=== PATIENT | female | born 1960 | race Caucasian/White ===

== ENCOUNTER 2023-12-19 13:38 | Inpatient (IN) | payer OTHER, SELFPAY ==
[2023-12-19 11:04] VITALS: BP 188/107
--- NOTE | 2023-12-19 11:40 | ED.CVA ---
History of Present Illness
General
Chief Complaint: CVA/TIA Symptoms
Time Seen by Provider: 12/19/23 11:37
Onset of Stroke Symptoms
Onset of symptoms known: Yes
Date of onset of symptoms: 12/15/23
History of Present Illness
History of Present Illness:
Patient presents to the emergency department with left-sided hand and arm weakness for 3 days. She also reports intermittent episodes of facial tingling and decreased sensation to the left side of her face and left arm. Denies headache. Denies
neck pain. Denies any known medical history though she states that she does not have health insurance and has not seen a doctor in quite some time. She does not take any medications.
Phy Exam
Physical Exam
Physical Exam:
GENERAL APPEARANCE: NAD, well developed/ well nourished
EYES lids/conjunctiva normal
EARS/NOSE/THROAT Mucous membranes moist, uvula midline without oral pharyngeal erythema, exudate or swelling
HEAD/NECK normocephalic atraumatic, neck is supple.
RESPIRATORY respiratory effort normal, speaks in full sentences, no accessory muscle use. Lungs clear to auscultation without rhonchi, wheezes, rales
CARDIAC Regular rate and rhythm, no edema.
ABDOMINAL Soft, ND/NT. No pulsatile masses on exam, rebound tenderness, Cooper sign or pain over Mcburney's point.
MUSCLES/EXTREMITIES No abnormal range of motion, no swelling.
SKIN Warm, pink and dry. No rashes
NEUROLOGICAL Speech is clear and appropriate. Normal level of consciousness. Cranial nerves II through XII intact except for left side facial sensation is diminished to pinprick. In her extremities she has decreased sensation to pinprick
throughout the left upper extremity. She has no motor drift on the left side but she does have some difficulty coordinating the left hand and left arm. There is no weakness of the left leg there is no ataxia or dysmetria
PSYCH Normal mood and affect. Judgement/competence is appropriate
NIH Stroke Score
Level of Consciousness: 0 - Alert
LOC questions: 0-Answers both correctly
LOC Commands: 0-Performs both correctly
Best Gaze: 0-Normal
Visual Mckinney: 0=Normal, no visual loss
Facial palsy: 0=Normal, symmetrical
Motor - Right Arm: 0=No drift 10 seconds
Motor - Left Arm: 0=No drift 10 seconds
Motor - Right Le-No drift 5 seconds
Motor - Left Le-No drift 5 seconds
Limb Ataxia: 0-Absent
Sensation: 1-Mild loss
Best Language: 0-No aphasia
Dysarthria: 0-Normal
Extinction and Inattention: 0-No abnormality
Total Score:: 1
Alteplase Contraindication
Reasons for NON-Treatment with Thrombolytics: Time
Course
Orders/Labs/Results
Orders:
Orders
12/19/23 11:[address] [CT Head W/o Iv Contrast] Urgent
Comment:
Reason For Exam: numbness
12/19/23 11:57
Complete Blood Count/With Diff Urgent
Comprehensive Metabolic Panel Urgent
Troponin I Urgent
12/19/23 12:20
Electrocardiogram (*1) Stat
Reason for Study: Other
Other Reason for Exam: neuro symptoms
Aspirin Chewable [Low Strength Aspirin] 81 mg PO NOW STA
12/19/23 12:23
NEUROLOGY CONSULT Urgent
Consulting Provider: Matt Reynoso
Was physician already notified: Yes
Reason for consult: stroke
12/19/23 12:36
MR Brain W/o & With Contrast Routine
Comment:
Reason For Exam: subacute CVA, r/o mass
Recent pill cam endoscopy?: No
12/19/23 12:37
MA [place] Wo Routine
Comment:
Reason For Exam: stroke workup
Recent pill cam endoscopy?: No
MA Neck With Contrast Routine
Reason For Exam: stroke workup
Recent pill cam endoscopy?: No
12/19/23 13:26
Admit/Transfer Patient As Directed
Co-Sign Provider:
Level of Care: Inpatient admission
Assign to:: Telemetry
Physician / Group: Zach
Diagnosis: LUE Weakness, Acute Stroke
Reason for Telemetry: CVA/TIA
Date to Stop Telemetry: 12/22/23
Time to Stop Telemetry: 11:00
Reason for Hospitalization: Stroke Work-Up
Expected length of stay greater than two midnights?: Yes
ELOS- Estimated Length of Stay in days: 3
I certify the patient meets the requirements for IP care: Yes
PRN Pain Medication Management As Directed
May give lesser potent ordered pain med per pt: Yes
preference::
Protocol:: Medication orders for pain may be administered in a
manner that supports deferring to patient preference
when the pt is:
- Requesting an ordered lesser potent pain medication.
Least to most potent pain medications are defined
as: acetaminophen < NSAID < tramadol < opioids
(morphine, oxycodone, hydromorphone).
- Requesting a lesser dose of the same medication IF
ORDERED.
- Requesting a less intrusive route of administration
if both routes are prescribed by the provider (PO <
IV).
12/19/23 13:27
Code Status As Directed
Resuscitation Status: Full Code
12/19/23 14:00
Alprazolam [Xanax] 0.25 mg PO ONCE ONE
12/19/23 15:21
Acetaminophen [Tylenol/Feverall] 650 mg RECTAL Q4HPRN PRN
Acetaminophen [Tylenol] 650 mg PO Q4HPRN PRN
Acetaminophen [Tylenol] 650 mg PO Q6HPRN PRN
12/19/23 15:21
Echo 2D MMode Color/Doppler Routine
Reason for Study: stroke/TIA
Case Management Consult ONCE
Case Management Consult: Discharge Planning
Comment: stroke/tia
DIETARY CONSULT Routine
Reason for Consult: stroke/TIA
[facility] Manager Routine
Activity As Directed
Activity Level: Out of Bed- Chair
NIH Stroke Scale As Directed
Directions: Per protocol
Comment: every shift and with any change in condition or mental status
Neurological Checks As Directed
Frequency: q4h
Additional Instructions:: q4h x 24h upon admission to the floor, then qshift & with any change in condition
and mental status
Patient Education As Directed
Type: Stroke education packet
Comment: provide to patient and family
Pneumatic Compression Sleeves As Directed
Type: Knee high
Swallow Screening CVA/TIA ONLY As Directed
Comment: NPO until swallowing screening completed
If patient FAILS swallow screening:: NPO, Speech Therapy consult, Aspiration Precautions
If patient PASSES swallow screening, diet:: Cholesterol Lowering
Vital Signs As Directed
Frequency: Per unit guidelines
Smoking Cessation Counseling [RESP] Routine
Ot Eval And Treat Routine
Pt Eval And Treat Routine
Activity Level: Out of Bed-Early Mobility
Speech Therapy Eval & Treat Routine
DX Deep Vein Thrombosis Video Routine
12/19/23 18:00
Atorvastatin [Lipitor] 40 mg PO QPM
12/19/23 22:00
Melatonin 10 mg PO HS
12/20/23 06:00
Basic Metabolic Panel IN AM
Cardiovascular Evaluation IN AM
Complete Blood Count/No Diff IN AM
Glycohemoglobin (HgbA1c) IN AM
Magnesium IN AM
12/20/23 08:00
Aspirin Chewable [Low Strength Aspirin] 81 mg PO DAILY
Clopidogrel Bisulfate [Plavix] 75 mg PO DAILY
12/22/23 11:00
DC Protocol for Telemetry ONCE
Abnormal Lab Results
12/19/23
11:57
Absolute Monos (auto) 0.7 H 10^3/uL
(0.1-0.6)
Monocytes % 9.4 H %
(1.7-9.3)
12/19/23 11:57
12/19/23 11:57
Vital Signs
Initial and Last Documented VS:
Initial Vital Signs
Temp Pulse Resp BP Pulse Ox
98.5 F 88 18 188/107 98
12/19/23 11:04 12/19/23 11:04 12/19/23 11:04 12/19/23 11:04 12/19/23 11:04
Last Documented Vital Signs
Temp Pulse Resp BP Pulse Ox
98.5 F 70 17 148/112 96
12/19/23 11:04 12/19/23 13:45 12/19/23 13:45 12/19/23 13:00 12/19/23 13:00
*Critical Care Note
Total Time (30-74mins, 75-104mins- exclusive of procedures): Not Applicable
Update Note
Update Note:
consulted Dr. Reynoso with neurology
ED Attending Note
ED Attending Note
ED Attending Note:
Patient with left-sided upper extremity weakness and sensory changes to the left side of the face and arm. CT scan showing subacute infarct in the right parietal region which anatomically matches patient's symptoms. Will admit for stroke workup
-
Portions of this chart may have been created with voice recognition software.� Occasional wrong word or��sound alike� substitutions may have occurred due to the inherent limitations of voice recognition software.
Discharge Plan
Departure
Patient Disposition: Admit
Date of Disposition: 12/19/23
Time of Disposition: 12:55
Admit to: Telemetry
Admit to doctor: Mario
Presentation/result/management discussed w/ accepting MD/DO: Hospitalist
Patient with high blood pressure during this ER visit?: Yes
Discharge Problem:
Stroke
Interventions
Interventions:
*Risk Screen - Suicide Last Done: 12/19/23 11:09
*General Assessment Last Done: 12/19/23 11:09
*Neglect/Abuse Screening Last Done: 12/19/23 11:09
ED- Fall Risk Assessment Last Done: 12/19/23 12:49
*ED COVID-19 Vaccine History Last Done: 12/19/23 11:58
*Nursing Disposition Last Done: 12/19/23 15:09
ED- Cardiac Assessment Last Done: 12/19/23 12:49
ED- Neurological Assessment Last Done: 12/19/23 11:59
ED- Pulmonary Assessment Last Done: 12/19/23 12:49
ED Swallowing Screen Last Done: 12/19/23 12:20
Discharge Date and Time
Discharge Date/Time: 12/19/23 15:09
[2023-12-19 11:55] VITALS: BMI 29.7
[2023-12-19 11:58] VITALS: BP 157/78
[2023-12-19 12:21] LABS: % Basophils 1.1 % (0-2); % Eosinophils 1.2 % (0-6); % Immature Granulocytes 0.3 % (0-0.5); % Lymphocytes 36.6 % (20.5-51.1); % Monocytes 9.4 % (1.7-9.3); % Neutrophils 51.4 % (42.2-75.2); Absolute Basophils 0.1 10^3/uL (0-0.2); Absolute Eosinophils 0.1 10^3/uL (0-0.7); Absolute Lymphocytes 2.7 10^3/uL (1.2-3.4); Absolute Monocytes 0.7 10^3/uL (0.1-0.6); Absolute Neutrophils 3.8 10^3/uL (1.4-6.5); Hematocrit 38.6 % (37.0-47.0); Hemoglobin 13.3 g/dL (12.0-16.0); Mean Corp Hgb Conc. 34.5 g/dL (33.0-37.0); Mean Corpuscular Hgb 30.2 pg (27.0-31.0); Mean Corpuscular Volume 87.5 fL (81.0-99.0); Mean Platelet Volume 10.1 fL (7.4-10.4); Nucleated Red Blood Cells % 0 %; Platelet Count 354 10^3/uL (130-400); Red Blood Cell Count 4.41 10^6/uL (4.20-5.40); Red Cell Dist. Width 13.4 % (11.5-14.5); White Blood Cell Count 7.4 10^3/uL (4.8-10.8)
[2023-12-19] MEDS: LOW STRENGTH ASPIRIN 81 MG PO (12:25)
[2023-12-19 12:30] LABS: ALT (SGPT) 24 U/L (0-35); AST (SGOT) 23 U/L (14-36); Albumin 4.6 g/dl (3.5-5.0); Alkaline Phosphatase 102 U/L (38-126); Blood Urea Nitrogen 16 mg/dl (7-17); Calcium 9.7 mg/dl (8.4-10.2); Carbon Dioxide 27 mmol/L (22-30); Chloride 106 mmol/L (98-107); Estimated Creatinine Clearance 103 ml/min; Glucose 98 mg/dl (70-99); Potassium 4.9 mmol/L (3.5-5.1); Sodium 138 mmol/L (135-145); Total Bilirubin 0.3 mg/dl (0.2-1.3); Total Protein 7.1 g/dl (6.3-8.2); eGFR > 60.00
[2023-12-19 12:41] LABS: Troponin I < 0.012 ng/ml
--- NOTE | 2023-12-19 12:41 | CON.NEURO4 ---
Documented by User: Elba Alexander NP 12/19/23 13:52
Consultation - Neurology 4
-
CONSULTING PHYSICIAN: Matt Reynoso MD
REFERRING PHYSICIAN: ER/Dr. Seth
DICTATED BY: ANA Pedro
DATE/TIME OF REQUEST: 12/19/23
DATE/TIME OF CONSULTATION: 12/19/23
Reason for Consultation: CVA
History of Present Illness:
This is a 63-year-old right-handed female who has presented to the hospital with report of left-sided numbness and LUE weakness. Patient reports that she has not been evaluated by a medical professional in a prolonged period of time and has no
known medical conditions mostly due to not going to a doctor. About one month ago, she reports have a severe right-sided headache lasting several days despite taking OTC pain relievers. She denies any previous history of headaches or migraines and
thought it was very unusual to have a headache. Shortly after her headache resolved, she reports waking up during one night in mid-November 2023 with left-sided numbness most prominent in her LUE and left face. She reports that this sensation never
resolved and has fluctuated in severity since it started. Then three days ago, she notes that her left hand suddenly started feeling slightly weak but was still fully functioning. Yesterday (12/18/23) her entire LUE started feeling weak and her left
hand became weak to the point of dropping objects from her left hand and not being able to do anything dextrous like buttoning her jeans. She also notes that her speech felt slurred, but that has resolved today. She denies any headache, dizziness,
vision loss, diplopia, swallowing difficulty, nausea, chest pain, palpitations, and shortness of breath. She does note several months of seeing 'stars' in bilateral eyes especially with standing up. Blood pressure was 188/[address] head was
obtained on arrival in the ER and is suggestive of hypoattenuation in the posterior right parietal lobe. NIHSS is 1 for mild sensation loss. She is not a candidate for IAT/TNK due to being outside of the time window. She denies any history of TIA,
stroke, or events like this in the past. She was not taking any blood-thinning medications. She also notes significant life stressors related to caring for her son with mental health issues.
Past Medical History: Denies.
Surgical History: Denies.
Family History: Mother- ICA occlusion, AAA.
Social History: 3/4 PPD smoker. Denies alcohol and illicit drug use.
Allergies: No known allergies.
Home Medications: See below.
Review of Symptoms:
Patient denies any fever, headache, chest pain, shortness of breath, GI or symptoms.
�Per the HPI.�All systems are reviewed negative except above.
Physical Exam:
The patient is afebrile, abdomen is nondistended, breathing is unlabored, skin is warm and dry, no edema.
NIH Stroke Scale:
I performed the NIH stroke scale on the patient on 12/19/23 at 1315. The patient scored 1 points on the NIH stroke scale assessment, which were assigned as follows:
Neurologic Examination:
The patient is awake, alert and oriented x 3. She is able to follow commands and answer questions appropriately. There is no aphasia or dysarthria. On cranial nerve assessment, pupils are 3 mm bilateral, round and reactive to light and
accommodation. Visual mckinney are full. Extraocular movements are intact. Facial sensations are intact and bilaterally symmetrical, there is no facial asymmetry. Hearing is intact bilaterally to normal conversation volume. Tongue palate and uvula are
midline. Sternocleidomastoid strengths are full bilaterally. Motor strengths are 5/5 right upper, 5-/5 left upper, and 5/5 bilateral lower extremities on medical research [place] scale. There is no drift or involuntary movement noted. Deep tendon
reflexes are 1+ bilateral upper and lower extremities and Babinski is absent bilaterally. Sensations of temperature and vibration are moderately reduced in the left face, arm, and leg. There was no extinction noted on double simultaneous
stimulation. Coordination is intact by finger to nose bilaterally.
Lab Results: See below.
Neuro Imaging:
1. CT head 12/19/23: Nonspecific focal area of abnormal hypoattenuation within the posterior right parietal lobe which could represent a subacute infarct in the appropriate clinical setting.
Differentials for the patient's presentation include:
1. CT head suggestive of right parietal lobe hypoattenuation concerning for subacute ischemic stroke. Cannot entirely exclude brain mass.
2. Nicotine dependence.
3. Hypertension.
Patient has the following risk factors for their symptoms: smoker, age, hypertension
IV Tenecteplase/IAT candidacy: She is not a candidate for IAT/TNK due to being outside of the time window.
Recommendations:
-Continue aspirin 81mg daily indefinitely.
-MRI w/ and w/o contrast, MRA head/neck pending.
-Goal normotension as symptom onset was >24 hours ago.
-LDL goal <70. Lipid panel pending. Initiate atorvastatin 40mg daily.
-Goal normoglycemia, hbA1c is pending.
-NIHSS and neurological checks per unit guidelines.
-Provide patient with a stroke education packet.
-PT/OT/ST evaluations.
-DVT prophylaxis.
-Smoking cessation counseling.
-Will follow pending results.
Discussed patient care with: Dr. Reynoso, the patient
Vital Signs and Labs
-
Vital Signs and Labs:
Vital Signs
Temp Pulse Resp BP Pulse Ox
98.5 F 75 19 157/78 97
12/19/23 11:04 12/19/23 12:45 12/19/23 12:45 12/19/23 11:58 12/19/23 12:45
Lab Results
12/19/23 11:57
12/19/23 11:57
Sodium 138 mmol/L (135-145) 12/19/23 11:57
Potassium 4.9 mmol/L (3.5-5.1) 12/19/23 11:57
BUN 16 mg/dl (7-17) 12/19/23 11:57
Glucose 98 mg/dl (70-99) 12/19/23 11:57
Calcium 9.7 mg/dl (8.4-10.2) 12/19/23 11:57
Medications
-
Home Medications
�Medication �Instructions �Recorded
acetaminophen 325 mg tablet 650 mg PO Q6HPRN PRN mild pain 12/19/23
(Tylenol)
diphenhydramine 25 2 tab PO HS 12/19/23
mg-acetaminophen 500 mg tablet
(Tylenol PM Extra Strength)
glucosamine [id number]-[id number]-Dvsljrvyj 1 tab PO DAILY 12/19/23
darleen 1,500 mg-400 unit-100 mg
tablet (Osteo Bi-Flex (5-Loxin))
melatonin 10 mg tablet 10 mg PO HS 12/19/23
therapeutic multivitamin 1 tab PO DAILY 12/19/23
NIH Stroke Score
Subsequent NIH Scale
Date of Subsequent NIH Scale: 12/19/23
Time of Subsequent NIH Scale: 13:15
NIH Stroke Score
Level of Consciousness: 0 - Alert
LOC Questions: 0-Answers both correctly
LOC Commands: 0-Performs both correctly
Best Horizontal Gaze: 0-Normal
Visual Mckinney: 0=Normal, no visual loss
Facial Palsy: 0=Normal, symmetrical
Motor - Right Arm: 0=No drift 10 seconds
Motor - Left Arm: 0=No drift 10 seconds
Motor - Right Le-No drift 5 seconds
Motor - Left Le-No drift 5 seconds
Limb Ataxia: 0-Absent
Sensation: 1-Mild loss
Best Language: 0-No aphasia
Dysarthria: 0-Normal
Extinction and Inattention: 0-No abnormality
Total Score:: 1
Modified Niru (mRS) Score
Modified Edwards Scale (mRS): Slight disability. Able to look after own affairs.
Score: 2

Documented by User: Matt Reynoso MD 12/19/23 21:22
Consultation - Neurology 4
-
CONSULTING PHYSICIAN: Matt Reynoso MD
REFERRING PHYSICIAN: ER/Dr. Seth
DICTATED BY: ANA Pedro
DATE/TIME OF REQUEST: 12/19/23
DATE/TIME OF CONSULTATION: 12/19/23
Reason for Consultation: CVA
History of Present Illness:
This is a 63-year-old right-handed female who has presented to the hospital complaining of left-sided numbness and weakness. Patient reports that she has not been evaluated by a medical professional in a prolonged period of time and has no known
medical conditions mostly due to not going to a doctor. Since November about 3-4 weeks ago, she reports have a severe right-sided headache lasting several days despite taking OTC pain relievers. She denies any previous history of headaches or migraines
and thought it was very unusual to have a headache. Shortly after her headache resolved, she reports waking up during one night in mid-November 2023 with left-sided numbness most prominent in her LUE and left face. She reports that this sensation never
resolved and has fluctuated in severity since it started. Then three days ago, she notes that her left hand suddenly started feeling slightly weak but was still fully functioning. Yesterday (12/18/23) her entire LUE started feeling weak and her left
hand became weak to the point of dropping objects from her left hand and not being able to do anything dextrous like buttoning her jeans. She also notes that her speech felt slurred, but that has resolved today. She denies any headache, dizziness,
vision loss, diplopia, swallowing difficulty, nausea, chest pain, palpitations, and shortness of breath. She does note several months of seeing 'stars' in bilateral eyes especially with standing up. Blood pressure was 188/[address] head was
obtained on arrival in the ER and is suggestive of hypoattenuation in the posterior right parietal lobe. NIHSS is 1 for mild sensation loss.
She is not a candidate for IAT/TNK due to symptom onset in November. She denies any history of TIA, stroke, or events like this in the past. She was not taking any blood-thinning medications. She also notes significant life stressors related to caring
for her son with mental health issues.
Past Medical History: Denies.
Surgical History: Denies.
Family History: Mother- ICA occlusion, AAA.
Social History: 07/15 PPD smoker. Denies alcohol and illicit drug use. Lives at home
Allergies: No known allergies.
Home Medications: See below.
Review of Symptoms:
Patient denies any fever, headache, chest pain, shortness of breath, GI or symptoms.
�Per the HPI.�All systems are reviewed negative except above.
Physical Exam:
The patient is afebrile, abdomen is nondistended, breathing is unlabored, skin is warm and dry, no edema.
NIH Stroke Scale:
I performed the NIH stroke scale on the patient on 12/19/23 at 1315. The patient scored 1 points on the NIH stroke scale assessment, which were assigned as follows:
Neurologic Examination:
The patient is awake, alert and oriented x 3. She is able to follow commands and answer questions appropriately. Speech is fluent. There is no aphasia or dysarthria. On cranial nerve assessment, pupils are 3 mm bilateral, round and reactive to
light and accommodation. Visual mckinney are full. Extraocular movements are intact. Facial sensations are intact and bilaterally symmetrical, there is no facial asymmetry. Hearing is intact bilaterally to normal conversation volume. Tongue palate and
uvula are midline. Sternocleidomastoid strengths are full bilaterally. Motor strengths are 5/5 right upper, 5-/5 left upper, and 5/5 bilateral lower extremities on medical research [place] scale. There is no drift or involuntary movement noted. Deep
tendon reflexes are 1+ bilateral upper and lower extremities and Babinski is absent bilaterally. Sensations of temperature and vibration are moderately reduced in the left face, arm, and leg. There was no extinction noted on double simultaneous
stimulation. Coordination is intact by finger to nose bilaterally. Rombergs and Gait WNL
Lab Results: See below.
Neuro Imaging:
1. CT head 12/19/23: Nonspecific focal area of abnormal hypoattenuation within the posterior right parietal lobe which could represent a subacute infarct in the appropriate clinical setting.
Differentials for the patient's presentation include:
1. CT head suggestive of right parietal lobe hypoattenuation concerning for subacute ischemic stroke. Cannot entirely exclude brain mass.
2. Nicotine dependence.
3. Hypertension.
Patient has the following risk factors for their symptoms: smoker, age, hypertension
IV Tenecteplase/IAT candidacy: She is not a candidate for IAT/TNK due to being outside of the time window.
Recommendations:
-Continue aspirin 81mg daily indefinitely.
-MRI w/ and w/o contrast, MRA head/neck pending.
-Goal normotension as symptom onset was >24 hours ago.
-LDL goal <70. Lipid panel pending. Initiate atorvastatin 40mg daily.
-Goal normoglycemia, hbA1c is pending.
-NIHSS and neurological checks per unit guidelines.
-Provide patient with a stroke education packet.
-PT/OT/ST evaluations.
-DVT prophylaxis.
-Smoking cessation counseling.
-Will follow pending results.
Discussed patient care with: Dr. Reynoso, the patient
Neurology Attending:
63 yr. old lady with h/o uncontrolled HTN who was admitted with new onset numbness and weakness on the Left side associated with mild motor/sensory deficits with CT finding of right parietal lesion: ischemic vs space occupying lesion
PLAN: Strict BP control
MRI brain with/without Arian
Ecasa 81
Lipid profile
PT/OT
NIH Stroke Score
NIH Stroke Score
Total Score:: 1
Modified Edwards (mRS) Score
Score: 2
[2023-12-19 13:00] VITALS: BP 148/112
--- NOTE | 2023-12-19 13:06 | W.PN.UPDATE ---
Update Note
Progress Note Update
I have independently examined the patient. I agree with assesment and plan outlined in the same date written H&P. In addition:
63yo F with DJD came with LUE weakness x3 days and fascial tingling. CT head showed possible R parietal subacurte stroke.
A/P:
#CVA
ASA, Plavix, Statin
Neurochecks
Telemetry, Echo
check TSH, Lipids, HgbA1c
Neurology cosnult
MRA neck/head and MRI brain
#DJD
cont tylenol
#nicotine dependency
counseled on smoking cessation
Nicoderm PRN
#Elevated BP
without diagnosis of HTN
follow trend
DVT ppx SCDs
Full code
We have spent at least 58min admitting the patient
--- NOTE | 2023-12-19 13:29 | HPS.HSE ---
Family Physician
-
Family Physician: Genesis Mckinney MD
Chief Complaint
-
Left upper extremity weakness
History of Present Illness
Patient is a 63 yo F without significant PMH c/o LUE weakness x 3 day. Pt states she noticed L hand weakness 3 days ago worsening yesterday afternoon with numbness/decreased sensation of LUE and loss of dexterity in L hand accompanied by slurred
speech. She admits to smoking 3/4 PPD x decades. She states she has not seen a doctor in years due to lack of health insurance and notes increasing daily stressors including son with mental health disorder and increasing monthly rent. She denies PMH
CVA, migraines, MS, cardiac issues. She denies other focal neurologic symptoms.
Medical History
Past Medical History
Past Medical History: Reports None
Past Surgical History: Reports None
Social History
Tobacco: Smoker (3/4 pack per day)
Family History
Family History: Not pertinent
Allergies / Home Medications
Allergies reflects when Allergies were last updated in [employer].
Home Medications with original date entered in [employer]
Allergy/Medication List:
Allergies
Allergy/AdvReac Type Severity Reaction Status Date / Time
No Known Allergies Allergy Unverified 12/19/23 11:04
Home Medications
acetaminophen 325 mg tablet (Tylenol) 650 mg PO Q6HPRN PRN mild pain 12/19/23
diphenhydramine 25 mg-acetaminophen 500 mg tablet (Tylenol PM Extra Strength) 2 tab PO HS 12/19/23
glucosamine [id number] darleen 1,500 mg-400 unit-100 mg tablet (Osteo Bi-Flex (5-Loxin)) 1 tab PO DAILY 12/19/23
melatonin 10 mg tablet 10 mg PO HS 12/19/23
therapeutic multivitamin 1 tab PO DAILY 12/19/23
Review of Systems
-
A 12 point ROS was completed and negative except as noted: Yes
Constitutional: Denies Fever or Chills
Respiratory: Denies Cough or Trouble Breathing
Cardiac: Denies Chest Pain or Palpitations
Neurological: Reports See HPI
Physical Exam
Vital Signs
Vital Signs
Temp Pulse Resp BP Pulse Ox
98.5 F 75 19 157/78 97
12/19/23 11:04 12/19/23 12:45 12/19/23 12:45 12/19/23 11:58 12/19/23 12:45
Physical Exam
General: Comfortable and Conversant
HEENT: Anicteric, Moist mucous membranes and PERRLA
Respiratory: Clear and Non Labored Respirations
Cardiac: S1/S2 and Regular Rhythm
GI: Soft, Non Tender and Non Distended
Rectal: Deferred by Provider
Musculoskeletal: No Clubbing, No Cyanosis and No Edema
Skin: Warm and Dry
Neuro: Awake, Alert, Oriented and Other (Significant decreased left hand public relations consultant strength; Decreased sensation left forearm)
Psych: Calm
Laboratory Results
-
12/19/23 11:57
12/19/23 11:57
Laboratory Results
Total Bilirubin 0.3 mg/dl (0.2-1.3) 12/19/23 11:57
AST 23 U/L (14-36) 12/19/23 11:57
ALT 24 U/L (0-35) 12/19/23 11:57
Alkaline Phosphatase 102 U/L (38-126) 12/19/23 11:57
Troponin I < 0.012 ng/ml 12/19/23 11:57
Data Reviewed
-
CT Scan: Report Reviewed by me
Lab Data: Labs Reviewed by me
Impression/Plan
-
Left Upper Extremity Weakness
-Head CT consistent with subacute right posterior parietal lobe infarct
-Consult Neurology
-Check Brain MRI with Head/Neck MRA
-Check Echo
-Check FLP and Hgb1c
-Consult PT/OT
-Continue Aspirin and Plavix
Hypertension
-Continue to monitor for now
-Consider starting antihypertensive if BP remains elevated
Tobacco Use Disorder
-Encourage smoking cessation
DVT proh: SCDs
Code Status: Full Code
[2023-12-19 15:51] VITALS: BP 159/124; BMI 28.8
[2023-12-19] MEDS: LIPITOR 40 MG PO (17:29)
[2023-12-19 19:24] VITALS: BP 159/78
[2023-12-19] MEDS: TYLENOL 650 MG PO (19:39)
[2023-12-19] MEDS: MELATONIN 10 MG PO (20:59)
--- NOTE | 2023-12-19 22:25 | PTCARENOTE ---
Patient received in bed at change of shift. AAOX3. NIH scale performed with result of 1 for left upper arm decreased sensation. Oriented to unit. Call walker within reach. No signs of distress noted.
[2023-12-19 23:04] VITALS: BP 147/85
[2023-12-20] VITALS (8 sets, daily range): BP systolic 116–161; BP diastolic 68–98; PULSE 67–72; O2SAT 97
[2023-12-20 07:19] LABS: Hematocrit 39.6 % (37.0-47.0); Hemoglobin 13.5 g/dL (12.0-16.0); Mean Corp Hgb Conc. 34.1 g/dL (33.0-37.0); Mean Corpuscular Hgb 29.8 pg (27.0-31.0); Mean Corpuscular Volume 87.4 fL (81.0-99.0); Mean Platelet Volume 10.2 fL (7.4-10.4); Platelet Count 325 10^3/uL (130-400); Red Blood Cell Count 4.53 10^6/uL (4.20-5.40); Red Cell Dist. Width 13.2 % (11.5-14.5); White Blood Cell Count 6.6 10^3/uL (4.8-10.8)
[2023-12-20] MEDS: PLAVIX 75 MG PO (07:35)
[2023-12-20] MEDS: LOW STRENGTH ASPIRIN 81 MG PO (07:35)
[2023-12-20] MEDS: XANAX 0.25 MG PO (07:36)
[2023-12-20 08:03] LABS: Blood Urea Nitrogen 14 mg/dl (7-17); Calcium 9.6 mg/dl (8.4-10.2); Carbon Dioxide 28 mmol/L (22-30); Chloride 104 mmol/L (98-107); Estimated Creatinine Clearance 102 ml/min; Glucose 121 mg/dl (70-99); HDL Cholesterol 41 mg/dl; LDL Cholesterol, Calculated 160 mg/dl; Magnesium 2.1 mg/dl (1.6-2.3); Potassium 4.9 mmol/L (3.5-5.1); Sodium 138 mmol/L (135-145); Total Cholesterol 249 mg/dl (50-199); Triglyceride 242 mg/dl (10-149); Very Low Density Lipoprotein 48 mg/dl (0-30); eGFR > 60.00
[2023-12-20 08:23] LABS: TSH Reflex To Free T4 0.74 uIU/ml (0.47-4.68)
[2023-12-20 08:30] LABS: Glycohemoglobin (HgbA1c) 6.3 % (4.0-5.6)
--- NOTE | 2023-12-20 09:15 | PTOTSP ---
Speech Language Pathology
Pt seen for cognitive-linguistic evaluation via the Forrest Cognitive Assessment (MOCA), version 8.2. Pt with a score of 27/30 where normal range is 26-30. Short-term memory affected with pt only able to recall 2/5 words independently, 3/5 with
min cueing, 5/5 with multiple choice cuing. Mild cognitive deficits noted. Pt reported she feels 'slow' and reported noting memory difficulties for some time, possibly since she noted arm tingling 1 month ago.
Given memory deficits, recommend outpatient rehab pending PT/OT evaluations/needs. [employer] to continue to follow.
[2023-12-20 10:32] LABS: ALT (SGPT) 25 U/L (0-35); AST (SGOT) 23 U/L (14-36); Albumin 4.4 g/dl (3.5-5.0); Alkaline Phosphatase 86 U/L (38-126); Direct Bilirubin 0.1 mg/dl (0.0-0.4); Total Bilirubin 0.4 mg/dl (0.2-1.3); Total Protein 6.6 g/dl (6.3-8.2)
--- NOTE | 2023-12-20 11:05 | W.PN.HOSP.TC ---
Today's Communication/Plan
-
CTA neck/head
Reattempt MRI with more sedation (ordered Ativan 1mg)
Assessment / Plan
Assessment / Plan
63yo F with DJD came with LUE weakness x3 days and fascial tingling. CT head showed possible R parietal subacurte stroke, however as per neurology -concern for additional reasons for current deficit, so MRI head with and without contrast scheduled
A/P:
#CVA
#HLD
ASA, Plavix, Statin
Neurochecks
Telemetry without clinically significant arrhythmia
Echo with no PFO, preserved EF
TSH WNL
LDL 160
Neurology cosnult
MRI brain with and without contrast - could not initially tolerate, will reattempt with more sedation with Ativan
CTA head/Neck
#DJD
cont tylenol
#nicotine dependency
counseled on smoking cessation
Nicoderm PRN
#Elevated BP
without diagnosis of HTN
follow trend
#PreDM
HgbA1c 6.2 - low carb diet nd PCP follow up
DVT ppx SCDs
Full code
I have spent at least 36min reviewing chart, test results, communication with consultants and direct patient care
Anticipated Discharge: Within 24 hours
Subjective/Interval History
-
Date of Service: December 20, 2023
Objective Data
-
Labs:
Laboratory Results
12/20/23
06:54
WBC 6.6
Hgb 13.5
Hct 39.6
Plt Count 325
Sodium 138
Potassium 4.9
Chloride 104
Carbon Dioxide 28
BUN 14
Creatinine 0.6
Glucose 121 H
Calcium 9.6
Total Bilirubin 0.4
AST 23
ALT 25
Alkaline Phosphatase 86
Vital Signs:
Vital Signs
Temp Pulse Resp BP Pulse Ox
97.8 F 72 18 137/82 97
12/20/23 07:00 12/20/23 07:00 12/20/23 07:00 12/20/23 07:00 12/20/23 07:00
I&O
12/19/23 12/20/23 12/21/23
06:59 06:59 06:59
Intake Total 350 / 350
Balance 350 / 350
Review of Systems
-
History Source: Patient
All other systems: Reviewed and negative
Neuro: Reports Numbness (over dorsal of L hand) and Other
Physical Exam
-
General: No Apparent Distress
HEENT: Normocephalic, Atraumatic and Moist Mucous Membranes
Respiratory: Clear to Auscultation
Cardiac: Regular Rhythm
GI: Soft, Nontender and Nondistended
Genito-urinary: No Costovertebral Tender
Musculoskeletal: No Clubbing, No Cyanosis and No Edema
Neuro: Awake, Alert, Oriented, AO x 3 and Other (LUE hand air bag curer weakness)
Psych: Calm
--- NOTE | 2023-12-20 14:21 | CM ---
Patient seen bedside, initial assessment completed. Patient resides independently (with her cat) in an apartment on the second floor, twelve steps to enter. Patient denies DME, VN, or SNF. Patient reports she does not have insurance and spoke with
[facility] here at Hospital. Patient PCP Genesis Mckinney, reports she has not been to PCP in years, pharmacy [facility] [place] or [place]. Patient reports her son has been in and out of [facility] [place], daughter resides in [place] but is
flying in to see patient. Patient reports she is employed but struggles with her income/expenses. PT/OT to evaluate patient. CM will continue to follow for all discharge planning needs.
Plan; PT/OT recommending acute rehab, will discus with patient. Patient [facility] pending, will discuss if [facility] can accept
[2023-12-20] MEDS: LIPITOR 80 MG PO (17:32)
[2023-12-20] MEDS: MELATONIN 10 MG PO (21:03)
[2023-12-21 03:43] VITALS: BP 131/65
[2023-12-21 06:00] VITALS: BMI 28.3
[2023-12-21 07:00] VITALS: BP 145/73
[2023-12-21] MEDS: LOW STRENGTH ASPIRIN 81 MG PO (08:06)
[2023-12-21] MEDS: PLAVIX 75 MG PO (08:06)
[2023-12-21] MEDS: TYLENOL 650 MG PO (08:08)
[2023-12-21] MEDS: ATIVAN 1 MG PO (10:36)
[2023-12-21 11:00] VITALS: BP 98/63
--- NOTE | 2023-12-21 12:45 | W.PN.HOSP.TC ---
Today's Communication/Plan
-
MRI brain
possible d/c afterwards
Assessment / Plan
Assessment / Plan
63yo F with DJD came with LUE weakness x3 days and fascial tingling. CT head showed possible R parietal subacute stroke, however as per neurology -concern for additional reasons for current deficit, so MRI head with and without contrast scheduled
Patient was accidently found thyroid nodules, that recommended to be followed with PCP
A/P:
#CVA
#HLD
ASA, Plavix, Statin
Neurochecks
Telemetry without clinically significant arrhythmia
Echo with no PFO, preserved EF
TSH WNL
LDL 160
Neurology cosnult
MRI brain with and without contrast - could not initially tolerate, will reattempt with more sedation with Ativan
CTA head/Neck: around 50% b/l carotid stenosis
#Thyroid nodule
outpatient US thyroid with PCP, if suspiscious - will need biopsy (size 1.4cm)
TSH WNL
#DJD
cont tylenol
#nicotine dependency
counseled on smoking cessation
Nicoderm PRN
#Elevated BP
without diagnosis of HTN
follow trend
#PreDM
HgbA1c 6.2 - low carb diet nd PCP follow up
DVT ppx SCDs
Full code
I have spent at least 36min reviewing chart, test results, communication with consultants and direct patient care
Anticipated Discharge: Today
Subjective/Interval History
-
Date of Service: December 21, 2023
Objective Data
-
Vital Signs:
Vital Signs
Temp Pulse Resp BP Pulse Ox
98.1 F 69 18 98/63 94
12/21/23 11:00 12/21/23 11:00 12/21/23 11:00 12/21/23 11:00 12/21/23 11:00
I&O
12/20/23 12/21/23 12/22/23
06:59 06:59 06:59
Intake Total 350 / 350 1440 / 1440
Balance 350 / 350 1440 / 1440
Review of Systems
-
History Source: Patient
All other systems: Reviewed and negative
Physical Exam
-
General: Well Developed and Well Nourished
HEENT: Normocephalic
Respiratory: Clear to Auscultation
Cardiac: Regular Rhythm
GI: Soft, Nontender and Nondistended
Musculoskeletal: No Clubbing, No Cyanosis and No Edema
Skin: Warm
Neuro: Awake, Alert, Oriented, AO x 3 and No Motor Deficits (LUE numbness and weakness)
Psych: Calm
--- NOTE | 2023-12-21 14:28 | CON.CAR ---
Addendum entered and electronically signed by Harriet Martinez MD 12/21/23 17:16:
I saw and examined the patient.
The PIN PUSHER's note was reviewed and I agree with the note.
Comment: 63-year-old smoker who does not seek out routine medical care presented for new weakness and speech abnormality found to have CVA in the right cerebral artery distribution with multiple areas of infarct. We are asked to consult for source
of embolism. She has a reg rate and rhythm, no murmurs gallops were appreciated, lungs are clear to auscultation bilaterally. We discussed that the most important invention at this time is smoking cessation. Additionally, agree with high
intensity statin. Will offer a JOSTIN for Sunday. Unfortunately the patient does not have any health insurance and implantable loop recorder will be cost prohibitive. Will start with a 2-week monitor as an outpatient. Then we can offer evaluation
should her insurance situation change. A smart watch would also be a good idea for imperfect rhythm monitoring. She understands and agrees. Will make n.p.o. after midnight on Sunday. Will monitor her telemetry over the weekend and see her again
on Sunday.
Original Note:
Consultation
Consultation Request
Date/Time Consultation Requested: 12/21/23 1423
Date/Time Consultation Performed: 12/21/23 1430
Requesting Provider: Dr. Serrano
Performing Provider: Sofie PEREZ for Dr. Martinez
Reason for Consultation: stroke
Medical History
-
Chief Complaint: LUE weakness and slurred speech
History of Present Illness:
63 y/o female smoker who is here for evaluation of 3 days of LUE weakness and slurred speech. MRI has revealed multiple foci of restricted diffusion in the territory of the posterior territory of right middle cerebral artery consistent with subacute
nonhemorrhagic infarcts. We are consulted to evaluate for cardiac cause. She denies any known PMH, but does not routinely see doctors. She is seen to have dyslipidemia and prediabetes.
Social History
Tobacco: Smoker (at least 3/4 PPD)
Alcohol: None
Drug: None
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
Family History
Family History: Reviewed & Not Pertinent
Allergies / Home Medications
Allergy/AdvReac Type Severity Reaction Status Date / Time
No Known Allergies Allergy Unverified 12/19/23 11:04
�Medication �Instructions �Recorded �Confirmed �Type
acetaminophen 325 mg tablet 650 mg PO Q6HPRN PRN mild pain 12/19/23 12/19/23 History
(Tylenol)
diphenhydramine 25 2 tab PO HS 12/19/23 12/19/23 History
mg-acetaminophen 500 mg tablet
(Tylenol PM Extra Strength)
glucosamine SRf-K0-Mbumsynvj 1 tab PO DAILY 12/19/23 12/19/23 History
darleen 1,500 mg-400 unit-100 mg
tablet (Osteo Bi-Flex (5-Loxin))
melatonin 10 mg tablet 10 mg PO HS 12/19/23 12/19/23 History
therapeutic multivitamin 1 tab PO DAILY 12/19/23 12/19/23 History
Review of Systems
-
History Source: Patient and Other (and chart)
Physical Exam
Vital Signs
Temp Pulse Resp BP Pulse Ox
98.1 F 69 18 98/63 94
12/21/23 11:00 12/21/23 11:00 12/21/23 11:00 12/21/23 11:00 12/21/23 11:00
Lab Results
12/20/23 06:54
12/20/23 06:54
Troponin I < 0.012 ng/ml 12/19/23 11:57
Physical Exam
General: Well Developed, Well Nourished and No Apparent Distress
HEENT: Normocephalic and Anicteric
Respiratory: Clear and Non Labored Respirations
Cardiac: Regular Rhythm
Musculoskeletal: No Edema
Skin: Warm and Dry
Neuro: AO x 3
Psych: Calm
Impression / Plan
-
Strokes:
-this diagnosis is threat to bodily function
-MRI as noted in detail below
-patient on ASA, plavix, and statin
-recommend JOSTIN and implantable loop recorder- will arrange for Sunday
Dyslipidemia:
-LDL 160
-now on statin
-we discussed recommendation for low cholesterol diet and exercise
Pre-diabetes:
-hgbA1C 6.2
-we discussed recommendation for low carb diet and exercise
-management per primary team
Elevated BP on arrival:
-now normalized without medical therapy
-follow
Smoker:
-recommend total cessation
Data Reviewed
-
EKG: Tracing Personally Visualized and interpreted (NSR)
MRI: Report Reviewed by me (12/20/22: Multiple foci of restricted diffusion in the territory of the posterior territory of right middle cerebral artery. Largest correlates with low-attenuation focus in the posterior right parietal lobe shown by CT
head. These are consistent with subacute, nonhemorrhagic infarcts. No significant )
Medical Tests (Nuc Med, Echo etc): Report Reviewed by me (Echo: Normal biventricular size and systolic function without regional wall motion abnormality. Estimated LVEF 55-60%. Aortic sclerosis without stenosis. Interatrial septum is intact with no
evidence of shunting by color flow Doppler.)
Labs: Labs Reviewed by me
--- NOTE | 2023-12-21 14:36 | W.PN.UPDATE ---
Update Note
Progress Note Update
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
[2023-12-21 15:00] VITALS: BP 150/65
--- NOTE | 2023-12-21 15:05 | CM ---
Patient seen bedside with daughter, discussed PT/OT recommendations of acute rehab. Patient still undecided, is eager to go home. Patient reports she knows she will not qualify for MA as she makes too much. CM left voicemail for [place] at [facility].
Hospitalist in to see patient, reports Cardiology will be in to see patient, patient not for discharge today. Daughter reports she will be home for a period of time to assist with patient if she does not want to go to rehab. CM will continue to
follow for all discharge planning needs.
Plan; PT/OT recommending acute rehab, patient undecided at this time.
[2023-12-21 16:37] VITALS: BP 144/82; PULSE 73; O2SAT 96
[2023-12-21] MEDS: LIPITOR 80 MG PO (17:00)
[2023-12-21 19:41] VITALS: BP 134/75
[2023-12-21] MEDS: MELATONIN 10 MG PO (20:52)
[2023-12-22] VITALS (8 sets, daily range): BP systolic 106–157; BP diastolic 60–86; PULSE 69; BMI 28.4
[2023-12-22] MEDS: TYLENOL 650 MG PO ×2 (05:41→21:31)
[2023-12-22] MEDS: LOW STRENGTH ASPIRIN 81 MG PO (08:01)
[2023-12-22] MEDS: PLAVIX 75 MG PO (08:01)
--- NOTE | 2023-12-22 11:52 | W.PN.HOSP.TC ---
Today's Communication/Plan
-
pending JOSTIN
Assessment / Plan
Assessment / Plan
63yo F with DJD came with LUE weakness x3 days and fascial tingling. CT head showed possible R parietal subacute stroke, however as per neurology -concern for additional reasons for current deficit, so MRI head with and without contrast done and
showed Multiple foci of restricted diffusion in the territory of the posterior territory of right middle cerebral artery on MRI - cardiology for outpatient quality assurance monitor chassis and planning JOSTIN on 12/24/23. Outpatient monitoring complicated by absent
insurance. Patient verbalized understanding that due to multiple new medical issues - she will need to work on getting one
Patient was accidently found thyroid nodules, that recommended to be followed with PCP that she has to establish after getting insurance. Smoking cessation strongly encouraged
A/P:
#acute ischemic CVA
#HLD
ASA, Plavix, Statin
Neurochecks
Telemetry without clinically significant arrhythmia
Echo with no PFO, preserved EF
TSH WNL
LDL 160
Neurology cosnult
MRI brain: Multiple foci of restricted diffusion in the territory of the posterior territory of right middle cerebral artery on MRI - cardiology for possible quality assurance monitor chassis
CTA head/Neck: around 50% b/l carotid stenosis
#Thyroid nodule
outpatient US thyroid with PCP, if suspicious - will need biopsy (size 1.4cm)
TSH WNL
#DJD
cont tylenol
#nicotine dependency
counseled on smoking cessation
Nicoderm PRN
#Elevated BP
without diagnosis of HTN
follow trend
#PreDM
HgbA1c 6.2 - low carb diet nd PCP follow up
DVT ppx SCDs
Full code
I have spent at least 36min reviewing chart, test results, communication with consultants and direct patient care
Anticipated Discharge: 24 - 48 hours
Subjective/Interval History
-
Date of Service: December 22, 2023
Objective Data
-
Vital Signs:
Vital Signs
Temp Pulse Resp BP Pulse Ox
98.0 F 68 18 106/60 97
12/22/23 11:35 12/22/23 11:35 12/22/23 11:35 12/22/23 11:35 12/22/23 11:35
I&O
12/21/23 12/22/23 12/23/23
06:59 06:59 06:59
Intake Total 1440 / 1440 2190 / 2190
Balance 1440 / 1440 0 / 2190
Review of Systems
-
History Source: Patient
All other systems: Reviewed and negative
Physical Exam
-
General: No Apparent Distress
HEENT: Normocephalic and Atraumatic
Respiratory: Clear to Auscultation
Cardiac: Regular Rhythm
GI: Soft, Nontender and Nondistended
Musculoskeletal: No Clubbing, No Cyanosis and No Edema
Skin: Warm
Neuro: Awake, Alert, Oriented, AO x 3 and Other (LUE numbness and weakness perisst)
Psych: Calm
[2023-12-22] MEDS: LIPITOR 80 MG PO (17:02)
[2023-12-22] MEDS: MELATONIN 10 MG PO (21:27)
[2023-12-23] VITALS (7 sets, daily range): BP systolic 117–160; BP diastolic 71–89
[2023-12-23] MEDS: TYLENOL 650 MG PO ×2 (08:41→15:45)
[2023-12-23] MEDS: PLAVIX 75 MG PO (08:43)
[2023-12-23] MEDS: LOW STRENGTH ASPIRIN 81 MG PO (08:43)
--- NOTE | 2023-12-23 10:36 | W.PN.HOSP.TC ---
Today's Communication/Plan
-
Pending JOSTIN and trekking guide by cardiology
Assessment / Plan
Assessment / Plan
63yo F with DJD came with LUE weakness x3 days and fascial tingling. CT head showed possible R parietal subacute stroke, however as per neurology -concern for additional reasons for current deficit, so MRI head with and without contrast done and
showed Multiple foci of restricted diffusion in the territory of the posterior territory of right middle cerebral artery on MRI - cardiology for outpatient trekking guide and planning JOSTIN on 12/24/23. Outpatient monitoring complicated by absent
insurance. Patient verbalized understanding that due to multiple new medical issues - she will need to work on getting one
Patient was accidently found thyroid nodules, that recommended to be followed with PCP that she has to establish after getting insurance. Smoking cessation strongly encouraged
A/P:
#acute ischemic CVA
#HLD
ASA, Plavix, Statin
Neurochecks
Telemetry without clinically significant arrhythmia
Echo with no PFO, preserved EF
TSH WNL
LDL 160
Neurology cosnult
MRI brain: Multiple foci of restricted diffusion in the territory of the posterior territory of right middle cerebral artery on MRI - cardiology for possible trekking guide
CTA head/Neck: around 50% b/l carotid stenosis
#Thyroid nodule
outpatient US thyroid with PCP, if suspicious - will need biopsy (size 1.4cm)
TSH WNL
#DJD
cont tylenol
#nicotine dependency
counseled on smoking cessation
Nicoderm PRN
#Elevated BP
without diagnosis of HTN
follow trend
#PreDM
HgbA1c 6.2 - low carb diet nd PCP follow up
DVT ppx SCDs
Full code
I have spent at least 36min reviewing chart, test results, communication with consultants and direct patient care
Anticipated Discharge: Within 24 hours
Subjective/Interval History
-
Date of Service: December 23, 2023
Objective Data
-
Vital Signs:
Vital Signs
Temp Pulse Resp BP Pulse Ox
97.6 F 71 14 148/84 95
12/23/23 07:20 12/23/23 07:20 12/23/23 07:20 12/23/23 07:20 12/23/23 07:20
I&O
12/22/23 12/23/23 12/24/23
06:59 06:59 06:59
Intake Total 0 / 0 1260 / 1260
Balance 2190 / 2190 1260 / 1260
Review of Systems
-
History Source: Patient
All other systems: Reviewed and negative
Physical Exam
-
General: Well Developed, Well Nourished and No Apparent Distress
HEENT: Normocephalic
Cardiac: Regular Rhythm
GI: Soft, Nontender and Nondistended
Genito-urinary: No Costovertebral Tender
Musculoskeletal: No Clubbing, No Cyanosis and No Edema
Skin: Warm
Neuro: Awake, Alert, Oriented and Other (L upper face and LUE numbness, LUE weakness, all present from admission )
Psych: Calm
[2023-12-23] MEDS: LIPITOR 80 MG PO (17:34)
[2023-12-23] MEDS: MELATONIN 10 MG PO (21:23)
[2023-12-24 03:48] VITALS: BP 158/67
[2023-12-24 07:00] VITALS: BP 144/78
[2023-12-24] MEDS: PLAVIX 75 MG PO (07:44)
[2023-12-24] MEDS: LOW STRENGTH ASPIRIN 81 MG PO (07:44)
--- NOTE | 2023-12-24 08:48 | W.PN.CD ---
Today's Communication / Plan
-
no clear YOON on JOSTIN
need op monitor
RF control with Statin, bp medication and smoking cessation
Impression / Plan
-
Strokes:
-this diagnosis is threat to bodily function
-MRI as noted in detail below
-patient on ASA, plavix, and statin
-JOSTIN today with simple plaque in the descending aorta, no PFO/ASD, CLAUDE thrombus, LV thrombus
-will arrange for op monitor, ILR cost prohibitive
Dyslipidemia:
-LDL 160
-now on statin, Goal LDL <70 but <55 would be better
-we discussed recommendation for low cholesterol diet and exercise
Pre-diabetes:
-hgbA1C 6.2
-we discussed recommendation for low carb diet and exercise
-management per primary team
Smoker:
-needs complete cessation
Physical Exam
Vital Signs/Labs
Vital Signs
Temp Pulse Resp BP Pulse Ox
98.6 F 73 16 144/78 96
12/24/23 07:00 12/24/23 07:00 12/24/23 07:00 12/24/23 07:00 12/24/23 07:00
12/20/23 06:54
12/20/23 06:54
Magnesium 2.1 mg/dl (1.6-2.3) 12/20/23 06:54
Triglycerides 242 mg/dl (10-149) H 12/20/23 06:54
LDL Cholesterol, Calc 160 mg/dl 12/20/23 06:54
VLDL Cholesterol, Calc 48 mg/dl (0-30) H 12/20/23 06:54
HDL Cholesterol 41 mg/dl 12/20/23 06:54
Physical Exam
Constitutional: No acute distress
Cardiovascular: Rhythm & rate is regular, Pedal edema is absent, JVD pressure is normal, Systolic murmur absent and Diastolic murmur absent
Respiratory: Respiratory effort normal, Lungs clear to auscul., Wheeze Absent, Crackles Absent and Rhonchi Absent
Neuro/Psych: AO x 3
Data Reviewed
-
Date of Service: December 24, 2023
EKG: Other
[2023-12-24 09:59] VITALS: BP 143/64; PULSE 62
--- NOTE | 2023-12-24 10:29 | W.PN.HOSP.TC ---
Today's Communication/Plan
-
D/C
Assessment / Plan
Assessment / Plan
63yo F with DJD came with LUE weakness x3 days and fascial tingling. CT head showed possible R parietal subacute stroke, however as per neurology -concern for additional reasons for current deficit, so MRI head with and without contrast done and
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 Outpatient monitoring complicated by absent
insurance. Patient verbalized understanding that due to multiple new medical issues - she will need to work on getting one
Patient was accidently found thyroid nodules, that recommended to be followed with PCP that she has to establish after getting insurance. Smoking cessation strongly encouraged
A/P:
#acute ischemic CVA
#HLD
ASA, Plavix, Statin
Neurochecks
Telemetry without clinically significant arrhythmia
Echo with no PFO, preserved EF
TSH WNL
LDL 160
Neurology consult
MRI brain: Multiple foci of restricted diffusion in the territory of the posterior territory of right middle cerebral artery on MRI - cardiology for possible chief building inspector
CTA head/Neck: around 50% b/l carotid stenosis
#Thyroid nodule
outpatient US thyroid with PCP, if suspicious - will need biopsy (size 1.4cm)
TSH WNL
#DJD
cont tylenol
#nicotine dependency
counseled on smoking cessation
Nicoderm PRN
#Elevated BP
without diagnosis of HTN
follow trend
#PreDM
HgbA1c 6.2 - low carb diet nd PCP follow up
DVT ppx SCDs
Full code
I have spent at least 36min reviewing chart, test results, communication with consultants and direct patient care
Anticipated Discharge: Today
Subjective/Interval History
-
Date of Service: December 24, 2023
Objective Data
-
Vital Signs:
Vital Signs
Temp Pulse Resp BP Pulse Ox
98.6 F 73 16 144/78 96
12/24/23 07:00 12/24/23 07:00 12/24/23 07:00 12/24/23 07:00 12/24/23 07:00
I&O
12/23/23 12/24/23 12/25/23
06:59 06:59 06:59
Intake Total 1260 / 1260 1080 / 1080
Balance 1260 / 1260 1080 / 1080
Review of Systems
-
History Source: Patient
All other systems: Reviewed and negative
Constitutional: Reports No Symptoms
Respiratory: Reports No Symptoms
Physical Exam
-
General: No Apparent Distress
HEENT: Normocephalic
Respiratory: Clear to Auscultation
Cardiac: Regular Rhythm
GI: Soft, Nontender and Nondistended
Musculoskeletal: No Clubbing, No Cyanosis and No Edema
Neuro: Awake, Alert, Oriented, AO x 3 and Other (LUE weakness)
--- NOTE | 2023-12-24 10:32 | W.DCSUMMARY ---
Discharge Summary
Discharge Data
Date of Admission: 12/19/23
Date of Discharge: 12/24/23
-
Pending Results: No
Hospital Course
63yo F with DJD came with LUE weakness x3 days and fascial tingling. CT head showed possible R parietal subacute stroke, however as per neurology -concern for additional reasons for current deficit, so MRI head with and without contrast done and
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
Outpatient monitoring complicated by absent insurance. Patient verbalized understanding that due to multiple new medical issues - she will need to work on getting one
Started Nifedipine 2/2 elevated BP
Patient was accidently found thyroid nodules, that recommended to be followed with PCP that she has to establish after getting insurance. Smoking cessation strongly encouraged
Medically stable for d/c home. Started to regain sensitivity and strength in LUE
I have spent at least 38min preparing d/c
Patient was managed for:
#acute ischemic CVA
#HLD
#Thyroid nodule
#DJD
#nicotine dependency
#Essential HTN
#PreDM
Discharge Plan
-
Patient Disposition: Home (Routine Discharge)
Discharge Diagnosis/Procedures: CVA
Diet: Low Cholesterol
Driving Restrictions: As prior to admission
Bathing Restrictions: None
Others Tests: cardiac cath lab manager- cardiology office will call you to arrange [phone] [facility]
Activity Restrictions/Additional Instructions:
Schedule thyroid US with your family doctor
Take Aspirin 81mg and Atorvastatin 80mg daily indefinitely
Take Plavix for 18 more days and stop
Referrals:
Genesis Mckinney MD [Family Provider] - (For thyroid US)
Sidney Valdez MD [Active] - in one month
Harriet Martinez MD [Active] -
Prescriptions:
New
atorvastatin 80 mg Tablet
80 mg PO QPM Qty: 30 0RF
clopidogrel 75 mg Tablet
75 mg PO DAILY Qty: 18 0RF
aspirin 81 mg Tablet,Chewable
81 mg PO DAILY Qty: 30 0RF
nifedipine 30 mg tablet extended release
30 mg PO DAILY Qty: 30 0RF
Continued
acetaminophen [Tylenol] 325 mg Tablet
650 mg PO Q6HPRN PRN (Reason: mild pain)
therapeutic multivitamin Tablet
1 tab PO DAILY
[id number]-Xfftyxizg serr [Osteo Bi-Flex (5-Loxin)] 1,500-400-100 mg-unit-mg Tablet
1 tab PO DAILY
Patient Comments:
12/19/23: Patient takes it not as often as she would like due to rebollar.
melatonin 10 mg Tablet
10 mg PO HS
Discontinued
diphenhydramine-acetaminophen [Tylenol PM Extra Strength] 25-500 mg Tablet
2 tab PO HS
Discharge Orders:
Discharge Patient (As Directed); Ordered 12/24/23
Ordered By: Ronaldo Serrano
Discharge Date and Time
Print Language: JORDANIAN
[2023-12-24 11:00] VITALS: BP 138/75
--- NOTE | 2023-12-24 14:33 | CM ---
entered order for discharge.
Spoke with Moni from [facility] she saw pt.Pt makes too much for [place].Pt given number [phone] for hospital stay assistance.
Spoke with pt in room. She was given [facility] pamphlet for a PCP .
Daughter to be staying with her and will drive her home and assist at home as needed.
Dana number is [phone] Admission called to correct number in chart.
Pt said daughter will assist her in signing up for insurance on line.
PLAN Home with no needs
== END 2023-12-24 11:23 | disposition home or self-care (01) | DRG 66 ==
LOC: 4 WEST ACU 13:38
PROVIDERS: Physician Assistant Medical; ADMITTING PHYSICIAN Internal Medicine; CONSULT PHYSICIAN Internal Medicine Cardiovascular Disease; CONSULT PHYSICIAN Psychiatry & Neurology Neurology; EMERGENCY PHYSICIAN Emergency Medicine; FAMILY PHYSICIAN Emergency Medicine
PROC: B24BZZ4 Ultrasonography of Heart with Aorta, Transesophageal (ICD-10-PCS; 2023-12-24)
DX: I63.511 Cerebral infarction due to unspecified occlusion or stenosis of right middle cerebral artery (principal); I65.23 Occlusion and stenosis of bilateral carotid arteries; G83.24 Monoplegia of upper limb affecting left nondominant side; R29.701 NIHSS score 1; I10 Essential (primary) hypertension; F17.210 Nicotine dependence, cigarettes, uncomplicated; E78.5 Hyperlipidemia, unspecified; M19.90 Unspecified osteoarthritis, unspecified site; R73.03 Prediabetes; E04.1 Nontoxic single thyroid nodule; I70.0 Atherosclerosis of aorta; Z59.7 Insufficient social insurance and welfare support
CPT/HCPCS: 70450; 70496; 70498; 70553; 80048; 80053; 80061; 82248; 83036; 83735; 84443; 84484; 85025; 85027; 92523; 93005; 93306; 93307; 93312; 93320; 93325; 97116; 97129; 97163; 97166; 97530; 97535; 99285; A9575; Q9967

== ENCOUNTER 2024-01-16 14:33 | Emergency (ER) | payer SELFPAY ==
[2024-01-16 14:36] VITALS: BP 115/97
[2024-01-16 14:43] LABS: Glucose - Point of Care 90 mg/dl (70-99)
[2024-01-16 15:03] LABS: % Basophils 0.8 % (0-2); % Eosinophils 1.1 % (0-6); % Immature Granulocytes 0.3 % (0-0.5); % Lymphocytes 32.1 % (20.5-51.1); % Neutrophils 57.7 % (42.2-75.2); Absolute Basophils 0.1 10^3/uL (0-0.2); Absolute Eosinophils 0.1 10^3/uL (0-0.7); Absolute Lymphocytes 2.8 10^3/uL (1.2-3.4); Absolute Monocytes 0.7 10^3/uL (0.1-0.6); Hemoglobin 12.6 g/dL (12.0-16.0); Mean Corp Hgb Conc. 34.1 g/dL (33.0-37.0); Mean Corpuscular Hgb 30.4 pg (27.0-31.0); Mean Corpuscular Volume 89.4 fL (81.0-99.0); Nucleated Red Blood Cells % 0 %; Platelet Count 347 10^3/uL (130-400); Red Blood Cell Count 4.14 10^6/uL (4.20-5.40); Red Cell Dist. Width 12.6 % (11.5-14.5); White Blood Cell Count 8.7 10^3/uL (4.8-10.8)
[2024-01-16 15:11] LABS: APTT 29.6 Sec (23.4-35.0)
[2024-01-16 15:16] LABS: ALT (SGPT) 24 U/L (0-35); AST (SGOT) 25 U/L (14-36); Albumin 4.6 g/dl (3.5-5.0); Alkaline Phosphatase 99 U/L (38-126); Blood Urea Nitrogen 18 mg/dl (7-17); Calcium 9.7 mg/dl (8.4-10.2); Carbon Dioxide 25 mmol/L (22-30); Chloride 104 mmol/L (98-107); Glucose 88 mg/dl (70-99); Potassium 4.7 mmol/L (3.5-5.1); Sodium 143 mmol/L (135-145); Total Bilirubin 0.3 mg/dl (0.2-1.3); eGFR > 60.00
[2024-01-16 15:27] LABS: Troponin I < 0.012 ng/ml
--- NOTE | 2024-01-16 17:01 | ED.GENMED ---
History of Present Illness
General
Chief Complaint: Numbness
Source: patient, records and family
Exam Limitations: none
Time Seen by Provider: 01/16/24 16:18
Nursing documentation reviewed up to this point in time: agreed with
History of Present Illness
History of Present Illness:
63-year-old female presents with left arm numbness weakness left facial numbness lasted 30 seconds to a minute history of a stroke about a month ago treated with 18 days of Plavix aspirin statin
No headaches nausea or vomiting, no slurred speech similar but less severe than her prior CVA
Past History
Past History
ED Past Medical History: CVA, HTN, Hypercholesterolemia and NIDDM
Social History
Tobacco: Non-smoker
Alcohol: None
Drug: None
Personal: Single
Living: alone
Review of Systems
Review of Systems
All Other Systems: Not applicable
Constitutional: Denies fever or fatigue
EENT: Reports no symptoms
Respiratory: Reports no symptoms
Cardiac: Reports no symptoms
ABD/GI: Reports no symptoms
: Reports no symptoms
Musculoskeletal: Reports no symptoms
Neurological: Reports weakness and numbness; Denies headache
Endocrine: Reports no symptoms
Hematologic/Lymphatic: Reports no symptoms
Phy Exam
Physical Exam
Physical Exam:
Physical Exam
General: no apparent distress, not acutely ill
Neck: No jaundice
Heart: s1/s2 regular rate and rhythm, no murmur. equal radial pulses.
Lungs: no acute respiratory distress. clear bilaterally
Neuro: alert and oriented. Clear speech no facial palsy muscle strength 5 out of 5 upper and
Skin: no rash
Psychiatric: well kept. interactive and cooperative
Extremities: no edema.
Course
Orders/Labs/Results
Orders:
Orders
01/16/24 14:41
Electrocardiogram (*1) Urgent
Reason for Study: Other
Other Reason for Exam: numbness
CT Head W/o Iv Contrast Urgent
Comment:
Reason For Exam: CVA symptoms
01/16/24 14:42
EKG- Treatment ONCE
01/16/24 14:46
Complete Blood Count/With Diff Urgent
Comprehensive Metabolic Panel Urgent
PTT Urgent
Troponin I Urgent
01/16/24 17:41
Clopidogrel Bisulfate [Plavix] 75 mg PO NOW STA
Abnormal Lab Results
01/16/24
14:46
RBC 4.14 L 10^6/uL
(4.20-5.40)
Absolute Monos (auto) 0.7 H 10^3/uL
(0.1-0.6)
BUN 18 H mg/dl
(7-17)
01/16/24 14:46
01/16/24 14:46
Vital Signs
Initial and Last Documented VS:
Initial Vital Signs
Temp Pulse Resp BP Pulse Ox
98.2 F 83 18 115/97 96
01/16/24 14:36 01/16/24 14:36 01/16/24 14:36 01/16/24 14:36 01/16/24 14:36
Last Documented Vital Signs
Temp Pulse Resp BP Pulse Ox
98.2 F 83 18 115/97 96
01/16/24 14:36 01/16/24 14:36 01/16/24 14:36 01/16/24 14:36 01/16/24 14:36
MDM/Problems Addressed
Differential Diagnosis Includes:
TIA CVA recrudescence seizure with Eamon's paralysis
MDM/Problems Addressed:
Neurologic fine
Chronic conditions affecting care: Neurological disorder
Acute Exacerbation and/or Progression of Chronic Illness: Neurological disorder
*Radiology
Radiology exam reviewed: radiology read reviewed
*Pulse Oximetry
Patient hypoxic: no
*EKG
Interpreted by ED Provider?: Yes
Interpretation: normal
Comparison EKG: no comparison EKG present
Heart Rate: 78
Rate: normal
Ischemia: no ischemia
*Plasterer Spot Interpretation
Rate: normal
Interpretation: normal
Heart Rate: 78
*Critical Care Note
Total Time (30-74mins, 75-104mins- exclusive of procedures): Not Applicable
Data Reviewed
Review of Other/Old Records Reveals: Labs, Records and Discharge Summary
Source: patient and records
Update Note
Update Note:
Update patient with resolved symptoms prior discharge summary neuro cardiology notes briefly reviewed message sent to the hospitalist for admission and requested neurology be consulted to see if inpatient management is needed she had been on Plavix
for 18 days
Message sent to on-call neurology
Reviewed with neurology, okay to send home, also restart Plavix indefinitely with her aspirin
Reviewed with patient she has an appointment scheduled already with neurology in mid January
ED Attending Note
-
Portions of this chart may have been created with voice recognition software.� Occasional wrong word or��sound alike� substitutions may have occurred due to the inherent limitations of voice recognition software.
Discharge Plan
Departure
Patient Disposition: Home (Routine Discharge)
Date of Disposition: 01/16/24
Time of Disposition: 17:42
Patient with high blood pressure during this ER visit?: No
Condition: Good
Covid-19: Not Applicable
Discharge Problem:
Brain TIA
Instructions: Transient ischemic attack, Transient Ischemic Attack ED
Prescriptions:
No Action
acetaminophen [Tylenol] 325 mg Tablet
650 mg PO Q6HPRN PRN (Reason: mild pain)
therapeutic multivitamin Tablet
1 tab PO DAILY
shtvxmvxean-K3-Ubfqgedtx serr [Osteo Bi-Flex (5-Loxin)] 1,500-400-100 mg-unit-mg Tablet
1 tab PO DAILY
Patient Comments:
12/19/23: Patient takes it not as often as she would like due to rebollar.
melatonin 10 mg Tablet
10 mg PO HS
atorvastatin 80 mg Tablet
80 mg PO QPM Qty: 30 0RF
clopidogrel 75 mg Tablet
75 mg PO DAILY Qty: 18 0RF
aspirin 81 mg Tablet,Chewable
81 mg PO DAILY Qty: 30 0RF
nifedipine 30 mg tablet extended release
30 mg PO DAILY Qty: 30 0RF
Referrals:
Anuradha Woo CRNP [Family Provider] -
Activity Restrictions/Additional Instructions:
Restart Plavix 75 mg a day in addition to your other medicine
Take this indefinitely
Follow-up with your primary care provider and neurology
Return to the ER if worsening symptoms
Interventions
Interventions:
*Risk Screen - Suicide Last Done: 01/16/24 14:36
*General Assessment Last Done: 01/16/24 14:36
*Neglect/Abuse Screening Last Done: 01/16/24 14:36
Discharge Date and Time
Print Language: CZECH
[2024-01-16 17:46] VITALS: BP 121/89
[2024-01-16] MEDS: PLAVIX 75 MG PO (17:50)
== END 2024-01-16 17:56 | disposition home or self-care (01) ==
LOC: EMR 14:33
PROVIDERS: Emergency Medicine; EMERGENCY PHYSICIAN Emergency Medicine; FAMILY PHYSICIAN Nurse Practitioner Family
DX: G45.9 Transient cerebral ischemic attack, unspecified (principal); I10 Essential (primary) hypertension; E78.00 Pure hypercholesterolemia, unspecified; E11.9 Type 2 diabetes mellitus without complications; Z79.02 Long term (current) use of antithrombotics/antiplatelets; Z86.73 Personal history of transient ischemic attack (TIA), and cerebral infarction without residual deficits
CPT/HCPCS: 99284; 70450; 80053; 82962; 84484; 85025; 85730; 93005

== ENCOUNTER → 2024-07-07 09:04 | Outpatient (REF) | payer OTHER, SELFPAY | LOC: RAD 09:04 | PROVIDERS: ATTENDING PHYSICIAN Nurse Practitioner Family | DX: E04.1 Nontoxic single thyroid nodule (principal) | CPT/HCPCS: 76536 ==

== ENCOUNTER 2024-07-08 02:25 | Observation (INO) | payer OTHER, SELFPAY ==
[2024-07-07 20:03] VITALS: BP 155/81
[2024-07-07 20:36] LABS: % Basophils 0.7 % (0-2); % Eosinophils 0.9 % (0-6); % Immature Granulocytes 0.4 % (0-0.5); % Lymphocytes 22.2 % (20.5-51.1); % Monocytes 5.9 % (1.7-9.3); % Neutrophils 69.9 % (42.2-75.2); Absolute Basophils 0.1 10^3/uL (0-0.2); Absolute Eosinophils 0.1 10^3/uL (0-0.7); Absolute Lymphocytes 2.5 10^3/uL (1.2-3.4); Absolute Monocytes 0.7 10^3/uL (0.1-0.6); Absolute Neutrophils 7.7 10^3/uL (1.4-6.5); Hematocrit 38.4 % (37.0-47.0); Mean Corp Hgb Conc. 33.9 g/dL (33.0-37.0); Mean Corpuscular Volume 88.5 fL (81.0-99.0); Mean Platelet Volume 9.9 fL (7.4-10.4); Nucleated Red Blood Cells % 0 %; Platelet Count 322 10^3/uL (130-400); Red Blood Cell Count 4.34 10^6/uL (4.20-5.40); Red Cell Dist. Width 12.9 % (11.5-14.5); White Blood Cell Count 11.1 10^3/uL (4.8-10.8)
[2024-07-07 20:49] LABS: ALT (SGPT) 25 U/L (0-35); AST (SGOT) 20 U/L (14-36); Alkaline Phosphatase 87 U/L (38-126); Blood Urea Nitrogen 17 mg/dl (7-17); Calcium 9.6 mg/dl (8.4-10.2); Carbon Dioxide 24 mmol/L (22-30); Chloride 99 mmol/L (98-107); Glucose 132 mg/dl (70-99); Potassium 3.8 mmol/L (3.5-5.1); Sodium 135 mmol/L (135-145); Total Bilirubin 0.6 mg/dl (0.2-1.3); Total Protein 7.2 g/dl (6.3-8.2); eGFR > 60.00
[2024-07-07 20:52] LABS: INR 0.83; PT 11.7 Sec (11.4-14.6)
[2024-07-07 20:56] LABS: Albumin 4.4 g/dl (3.5-5.0)
[2024-07-07 21:01] LABS: Troponin I < 0.012 ng/ml
[2024-07-07 23:12] VITALS: BP 150/78
[2024-07-08] VITALS (12 sets, daily range): BP systolic 114–143; BP diastolic 47–106; PULSE 65–71; O2SAT 96
[2024-07-08] MEDS: ZOFRAN 4 MG IV
--- NOTE | 2024-07-08 00:02 | ED.GENMED ---
History of Present Illness
General
Chief Complaint: Dizziness
Source: patient
Exam Limitations: none
Time Seen by Provider: 07/07/24 22:38
Nursing documentation reviewed up to this point in time: agreed with
History of Present Illness
History of Present Illness:
The patient is a 63-year-old female with a past medical history of high blood pressure and CVA. Patient reports dizziness for 1 to 2 days. Patient reports that intensified while she was getting an ultrasound done of her thyroid gland yesterday.
Patient reports that she was so off balance that she fell earlier today. She did not hit her head. Patient denies headache. She denies vision changes. She denies nausea and vomiting associated with the dizziness. Additionally, patient reports
that she has noticed intermittent weakness in her left arm, causing her to drop objects from time to time over the last 2 to 3 days. Currently, she reports her left arm feels slightly weak. To the right. She denies any weakness in the legs or
face. She denies numbness. She denies chest pain or shortness of breath
Past History
Past History
ED Past Medical History: CVA, HTN, Hypercholesterolemia and NIDDM
Social History
Tobacco: Smoker
Alcohol: None
Drug: None
Personal: Single
Living: alone
Employment: Employed
Family History
Family History: Other
Review of Systems
Review of Systems
Allergies reviewed?: Yes
All Other Systems: ROS reviewed and negative except as documented in HPI and ROS
Constitutional: Reports no symptoms
EENT: Reports no symptoms
Respiratory: Reports no symptoms
Cardiac: Reports no symptoms
ABD/GI: Reports nausea and vomiting
: Reports no symptoms
Musculoskeletal: Reports no symptoms
Skin: Reports no symptoms
Neurological: Reports dizzy and weakness
Endocrine: Reports no symptoms
Hematologic/Lymphatic: Reports no symptoms
Psychiatric: Reports no symptoms
Phy Exam
Physical Exam
Physical Exam:
Physical Exam
General: Patient appears slightly anxious and uncomfortable but is conversational
Neck: supple. no meningeal signs. normal psoterior pharynx
Heart: s1/s2 regular rate and rhythm, no murmur. equal radial pulses.
Lungs: no acute respiratory distress. clear bilaterally
Abdomen: normal bowel sounds. not tender. no CVAT
Neuro: alert and orientedx3. no focal neurological deficits. Extraocular muscles intact. Normal finger-nose. 5 out of 5 strength in extremities without drift. Visual desir intact
Skin: no rash
Psychiatric: well kept. interactive and cooperative
Extremities: no edema. no calf tenderness. negative homans. good distal pulses
Course
Orders/Labs/Results
Orders:
Orders
07/07/24 20:09
Electrocardiogram (*1) Urgent
Reason for Study: Vertigo / Dizzy
EKG- Treatment ONCE
07/07/24 20:10
CT Head W/o Iv Contrast Urgent
Comment: hx of cva
Reason For Exam: dizziness, left arm weakness started 9am today
07/07/24 20:29
Complete Blood Count/With Diff Urgent
Comprehensive Metabolic Panel Urgent
Prothrombin Time Urgent
Troponin I Urgent
07/07/24 23:24
Electrocardiogram (*1) Urgent
Reason for Study: Fatigue / Weakness
EKG- Treatment ONCE
07/07/24 23:36
Meclizine [Antivert] 25 mg PO NOW STA
Ondansetron Injectable [Zofran] 4 mg IV NOW STA
07/08/24 02:05
Admit/Transfer Patient As Directed
Co-Sign Provider:
Level of Care: Observation services
Assign to:: Telemetry
Physician / Group: Joon
Diagnosis: CVA / TIA
Reason for Telemetry: CVA/TIA
Date to Stop Telemetry: 07/11/24
Time to Stop Telemetry: 11:00
07/08/24 02:06
Code Status As Directed
Resuscitation Status: Full Code
PRN Pain Medication Management As Directed
May give lesser potent ordered pain med per pt: Yes
preference::
Protocol:: Medication orders for pain may be administered in a
manner that supports deferring to patient preference
when the pt is:
- Requesting an ordered lesser potent pain medication.
Least to most potent pain medications are defined
as: acetaminophen < NSAID < tramadol < opioids
(morphine, oxycodone, hydromorphone).
- Requesting a lesser dose of the same medication IF
ORDERED.
- Requesting a less intrusive route of administration
if both routes are prescribed by the provider (PO <
IV).
07/11/24 11:00
DC Protocol for Telemetry ONCE
Abnormal Lab Results
07/07/24
20:29
WBC 11.1 H 10^3/uL
(4.8-10.8)
Absolute Neuts (auto) 7.7 H 10^3/uL
(1.4-6.5)
Absolute Monos (auto) 0.7 H 10^3/uL
(0.1-0.6)
Creatinine 0.5 L mg/dL
(0.6-1.0)
Glucose 132 H mg/dl
(70-99)
07/07/24 20:29
07/07/24 20:29
Vital Signs
Initial and Last Documented VS:
Initial Vital Signs
Temp Pulse Resp BP Pulse Ox
97.6 F 79 18 155/81 96
07/07/24 20:03 07/07/24 20:03 07/07/24 20:03 07/07/24 20:03 07/07/24 20:03
Last Documented Vital Signs
Temp Pulse Resp BP Pulse Ox
97.6 F 85 19 123/61 97
07/07/24 20:03 07/08/24 02:00 07/08/24 02:00 07/08/24 01:00 07/08/24 02:00
MDM/Problems Addressed
Differential Diagnosis Includes:
Acute CVA, benign positional vertigo, hyponatremia
MDM/Problems Addressed:
Patient presents with acute intermittent weakness of left upper extremity as well as dizziness
Chronic conditions affecting care: HTN
Acute Exacerbation and/or Progression of Chronic Illness:
Patient may have acute exacerbation of chronic strokelike symptoms of left upper extremity weakness
Acute Exacerbation and/or Progression of Chronic Illness: HTN
*Radiology
Radiology exam reviewed: radiology read reviewed
*Pulse Oximetry
Patient hypoxic: no
*EKG
Interpreted by ED Provider?: Yes
Interpretation: abnormal
Comparison EKG: no comparison EKG present
Rate: normal
Rhythm: sinus
[place]: normal axis
Interval: normal interval
QRS Pattern: normal QRS
Ischemia: non-specific ST changes
*Metalizing Supervisor Interpretation
Rate: normal
Interpretation: normal
Rhythm: sinus
*Critical Care Note
Total Time (30-74mins, 75-104mins- exclusive of procedures): Not Applicable
Data Reviewed
Review of Other/Old Records Reveals: Discharge Summary (Discharge summary reviewed from 12/2023 when patient was admitted for left upper extremity weakness likely due to stroke)
Source: patient
ED Attending Note
-
Portions of this chart may have been created with voice recognition software.� Occasional wrong word or��sound alike� substitutions may have occurred due to the inherent limitations of voice recognition software.
Discharge Plan
Departure
Patient Disposition: Admit
Date of Disposition: 07/08/24
Time of Disposition: 00:46
Admit to: Telemetry
Presentation/result/management discussed w/ accepting MD/DO: Hospitalist
Patient with high blood pressure during this ER visit?: Yes
Condition: Good
Covid-19: Not Applicable
Discharge Problem:
Dizziness, Left arm weakness
Interventions
Interventions:
*Risk Screen - Suicide Last Done: 07/07/24 23:14
*General Assessment Last Done: 07/07/24 23:14
*Neglect/Abuse Screening Last Done: 07/07/24 23:14
ED- Fall Risk Assessment Last Done: 07/07/24 23:14
*ED COVID-19 Vaccine History Last Done: 07/07/24 23:14
ED- Neurological Assessment Last Done: 07/07/24 23:14
ED- Cardiac Assessment Last Done: 07/07/24 23:14
ED Swallowing Screen Last Done: 07/08/24 00:00
--- NOTE | 2024-07-08 02:08 | HPS.HSE ---
Family Physician
-
Family Physician: ANA Bower
Chief Complaint
-
Dizziness
History of Present Illness
Patient is a 63y F with PMH significant for hypertension and prior CVA who presents to ED complaining of dizziness. Patient states that her symptoms started this Am and have persisted throughout the day. She describes a strong room spinning
sensation with associated nausea - no emesis. No falls. No focal numbness, tingling, weakness, etc. No headache. She states that her vision has been 'more blurry' the last few days.
No recent illness, cough, GI complaints, etc. No recent fevers / chills.
Patient denies any prior h./o similar symptoms.
Medical History
Past Medical History
Past Medical History: Reports Other
Additional Past Medical History:
Hypertension
CVA
Thyroid Nodule
Impaired Fasting Glucose
Past Surgical History: Reports None
Social History
Tobacco: Smoker (Current every day smoker.)
Alcohol: None
Drug: None
Family History
Family History: Not pertinent
Allergies / Home Medications
Allergies reflects when Allergies were last updated in [employer].
Home Medications with original date entered in [employer]
Allergy/Medication List:
Allergies
Allergy/AdvReac Type Severity Reaction Status Date / Time
No Known Allergies Allergy Verified 01/16/24 14:36
Home Medications
acetaminophen 325 mg tablet (Tylenol) 650 mg PO Q6HPRN PRN mild pain 12/19/23
glucosamine GZt-Q2-Muhlurmpc darleen 1,500 mg-400 unit-100 mg tablet (Osteo Bi-Flex (5-Loxin)) 1 tab PO DAILY 12/19/23
melatonin 10 mg tablet 10 mg PO HS PRN sleep 12/19/23
therapeutic multivitamin 1 tab PO DAILY 12/19/23
aspirin 81 mg chewable tablet 81 mg PO DAILY #30 tabs 12/24/23
atorvastatin 80 mg tablet 80 mg PO QPM #30 tabs 12/24/23
clopidogrel 75 mg tablet 75 mg PO DAILY #18 tabs 12/24/23
nifedipine 30 mg tablet,extended release 30 mg PO DAILY #30 tabs 12/24/23
Additional Bp Med, 1 tab PO DAILY 07/07/24
Review of Systems
-
History Source: Patient
A 12 point ROS was completed and negative except as noted: Yes
Constitutional: Reports Fatigue; Denies Fever or Chills
EENT: Denies Sore Throat
Respiratory: Denies Cough or Trouble Breathing
Cardiac: Denies Chest Pain, Palpitations or Syncope
Abdomen/GI: Reports Nausea; Denies Abdominal Pain, Vomiting or Diarrhea
: Denies Dysuria or Frequency
Musculoskeletal: Denies Joint Pain or Edema
Neurological: Reports Dizzy; Denies Headache, Weakness or Numbness
Psych: Denies Depression or Anxiety
Physical Exam
Vital Signs
Vital Signs
Temp Pulse Resp BP Pulse Ox
97.6 F 85 19 123/61 97
07/07/24 20:03 07/08/24 02:00 07/08/24 02:00 07/08/24 01:00 07/08/24 02:00
Physical Exam
General: Other (63y F in no acute distress.)
HEENT: Moist mucous membranes, PERRLA and Other (No nystagmus)
Respiratory: Clear; No Wheezes, Rales or Rhonchi
Cardiac: S1/S2 and Regular Rhythm; No Murmur
GI: Soft, Non Tender, Non Distended and Normal Bowel Sounds
Musculoskeletal: No Clubbing, No Cyanosis and No Edema
Neuro: AO x 3 and Nonfocal/grossly intact
Laboratory Results
-
07/07/24 20:29
07/07/24 20:29
Laboratory Results
PT 11.7 Sec (11.4-14.6) 07/07/24 20:
INR 0.83 07/07/24 20:
Total Bilirubin 0.6 mg/dl (0.2-1.3) 07/07/24 20:
AST 20 U/L (14-36) 07/07/24 20:
ALT 25 U/L (0-35) 07/07/24 20:
Alkaline Phosphatase 87 U/L (38-126) 07/07/24 20:
Troponin I < 0.012 ng/ml 07/07/24:
Impression/Plan
-
A/P: Patient is a 63y F with PMH significant for prior CVA who presents to ED complaininig of dizziness.
Dizziness / Vertigo
- Observe overnight for further evaluation and treatment.
- Continue supportive care with meclizine PRN.
- PT / Vestibular therapy eval in the AM.
- Check MRI in the AM given prior h/o stroke, vision changes, etc.
- Follow for any new / worsening symptoms.
- Monitor for any new focal deficits.
ASCVD / Prior CVA
- Continue usual med regimen including DAPT, statin, etc.
Benign Hypertension
- Stable. Continue home medications and adjust as needed.
Impaired Fasting Glucose Tolerance
- Update A1C.
DVT Prophylaxis: SCDs
Code Status: Full
[2024-07-08 06:10] LABS: Hematocrit 38.8 % (37.0-47.0); Hemoglobin 13.2 g/dL (12.0-16.0); Mean Corpuscular Hgb 30.5 pg (27.0-31.0); Mean Corpuscular Volume 89.6 fL (81.0-99.0); Mean Platelet Volume 10.1 fL (7.4-10.4); Platelet Count 308 10^3/uL (130-400); Red Blood Cell Count 4.33 10^6/uL (4.20-5.40); Red Cell Dist. Width 13.1 % (11.5-14.5); White Blood Cell Count 8.4 10^3/uL (4.8-10.8)
[2024-07-08 06:13] LABS: Blood Urea Nitrogen 16 mg/dl (7-17); Calcium 9.6 mg/dl (8.4-10.2); Carbon Dioxide 25 mmol/L (22-30); Chloride 102 mmol/L (98-107); Glucose 98 mg/dl (70-99); HDL Cholesterol 41 mg/dl; LDL Cholesterol, Calculated 70 mg/dl; Sodium 138 mmol/L (135-145); Total Cholesterol 141 mg/dl (50-199); Triglyceride 150 mg/dl (10-149); Very Low Density Lipoprotein 30 mg/dl (0-30); eGFR > 60.00
[2024-07-08] MEDS: PROCARDIA XL (EXTENDED RELEASE) 30 MG PO (08:31)
[2024-07-08] MEDS: PLAVIX 75 MG PO (08:31)
[2024-07-08] MEDS: LOW STRENGTH ASPIRIN 81 MG PO (08:31)
[2024-07-08 09:15] LABS: Glycohemoglobin (HgbA1c) 6.2 % (4.0-5.6)
--- NOTE | 2024-07-08 09:48 | PTOTSP ---
pt currently demonstrates ability to complete simple ADLs, functional transfers, ambulation with no assistance. no overt deficits noted, no skilled OT needs identified. will sign off.
[2024-07-08] MEDS: ANTIVERT 25 MG PO ×2 (10:54)
--- NOTE | 2024-07-08 13:55 | W.DCSUMMARY ---
Discharge Summary
Discharge Data
Date of Admission: 07/08/24
Date of Discharge: 07/08/24
-
Pending Results: No
Hospital Course
Ms. Ortiz is a 63-year-old female with a medical history of hypertension, tobacco use, and CVA who presented with dizziness. She multiple recent episodes of room spinning, the worst of which being today, which is why she sought medical attention.
She reported associated nausea without vomiting. She had no focal weakness. She did report that her vision has been blurry recently but she has not followed up with her eye doctor for new prescription in many years. She denies headaches or
fevers. She does report sinus congestion for the past few weeks. She was normotensive and afebrile. EKG showed normal sinus rhythm with controlled heart rate. Labs were remarkable only for a mild leukocytosis of 11,000 which resolved on repeat
labs without any specific intervention. MRI brain showed chronic infarcts with no acute abnormalities, although did show bilateral maxillary sinusitis. Her symptoms improved with meclizine. She had no skilled needs upon evaluation by PT/OT. She
has been diagnosed with peripheral vertigo, likely due to viral upper respiratory infection. She will be discharged to home with a prescription for a tapering dose of steroids and for meclizine. She should follow-up with her primary care physician
for ongoing monitoring. She declined vestibular therapy at this time but can discuss this further with her PCP if she changes her mind. She should continue taking her home medications as prescribed. She has been encouraged to discontinue smoking.
Gen-AAOx3, NAD
HEENT-NC, AT, anicteric, clear oral mm
Neck-supple
CV-reg, no M, +S1/S2
Lungs-clear B/L
Abd-soft, NT, ND
Musculoskeletal-no edema, no deformity
Skin-warm and dry
Neuro-grossly non-focal, no nystagmus
Psych-calm, cooperative
Discharge Plan
-
Patient Disposition: Home (Routine Discharge)
Discharge Diagnosis/Procedures: Vertigo
Diet: No restrictions
Activity: No restrictions
Activity Restrictions/Additional Instructions:
Ms. Ortiz is a 63-year-old female with a medical history of hypertension, tobacco use, and CVA who presented with dizziness. She multiple recent episodes of room spinning, the worst of which being today, which is why she sought medical attention.
She reported associated nausea without vomiting. She had no focal weakness. She did report that her vision has been blurry recently but she has not followed up with her eye doctor for new prescription in many years. She denies headaches or
fevers. She does report sinus congestion for the past few weeks. She was normotensive and afebrile. EKG showed normal sinus rhythm with controlled heart rate. Labs were remarkable only for a mild leukocytosis of 11,000 which resolved on repeat
labs without any specific intervention. MRI brain showed chronic infarcts with no acute abnormalities, although did show bilateral maxillary sinusitis. Her symptoms improved with meclizine. She had no skilled needs upon evaluation by PT/OT. She
has been diagnosed with peripheral vertigo, likely due to viral upper respiratory infection. She will be discharged to home with a prescription for a tapering dose of steroids and for meclizine. She should follow-up with her primary care physician
for ongoing monitoring. She declined vestibular therapy at this time but can discuss this further with her PCP if she changes her mind. She should continue taking her home medications as prescribed. She has been encouraged to discontinue smoking.
Referrals:
Anuradha Woo CRNP [Family Provider] -
Prescriptions:
New
meclizine 25 mg Tablet
25 mg PO Q8HPRN PRN (Reason: Dizziness) Qty: 20 0RF
methylprednisolone [Medrol (Kareem)] 4 mg tablets,dose pack
See Rx Instructions .ROUTE .COMPLEX Qty: 21 0RF
Rx Instructions:
for 6 days
Continued
acetaminophen [Tylenol] 325 mg Tablet
650 mg PO Q6HPRN PRN (Reason: mild pain)
therapeutic multivitamin Tablet
1 tab PO DAILY
[id number] serr [Osteo Bi-Flex (5-Loxin)] 1,500-400-100 mg-unit-mg Tablet
1 tab PO DAILY
Patient Comments:
12/19/23: Patient takes it not as often as she would like due to rebollar.
melatonin 10 mg Tablet
10 mg PO HS PRN (Reason: sleep)
atorvastatin 80 mg Tablet
80 mg PO QPM Qty: 30 0RF
clopidogrel 75 mg Tablet
75 mg PO DAILY Qty: 18 0RF
aspirin 81 mg Tablet,Chewable
81 mg PO DAILY Qty: 30 0RF
nifedipine 30 mg tablet extended release
30 mg PO DAILY Qty: 30 0RF
hydrochlorothiazide 12.5 mg Tablet
12.5 mg PO DAILY
Discontinued
Additional Bp Med,
1 tab PO DAILY
Discharge Orders:
Discharge Patient (As Directed); Ordered 07/08/24
Ordered By: Jim Cheney
Discharge Date and Time
Print Language: SPANISH
--- NOTE | 2024-07-08 14:16 | CM ---
CM met with pt bedside
Discharge order noted
Per PT/OT vestibular therapy vs no needs
Pt declined
Has ride home
OBS form verbally completed- copy provided
Discharge Disposition- home, no needs
== END 2024-07-08 14:53 | disposition home or self-care (01) ==
LOC: 1 ACUTE 02:25
PROVIDERS: ADMITTING PHYSICIAN Hospitalist; ATTENDING PHYSICIAN Internal Medicine; EMERGENCY PHYSICIAN Emergency Medicine; FAMILY PHYSICIAN Nurse Practitioner Family
DX: H81.399 Other peripheral vertigo, unspecified ear (principal); Z86.73 Personal history of transient ischemic attack (TIA), and cerebral infarction without residual deficits; F17.200 Nicotine dependence, unspecified, uncomplicated; I10 Essential (primary) hypertension; R53.1 Weakness; I25.10 Atherosclerotic heart disease of native coronary artery without angina pectoris; R73.01 Impaired fasting glucose; J32.0 Chronic maxillary sinusitis; Z79.02 Long term (current) use of antithrombotics/antiplatelets
CPT/HCPCS: 70450; 70551; 80048; 80053; 80061; 83036; 84484; 85025; 85027; 85610; 93005; 96374; 97112; 97163; 97166; 99285; G0378

== ENCOUNTER → 2025-03-23 17:44 | Outpatient (REF) | payer MEDICARE, SELFPAY | LOC: WDC 17:44 | PROVIDERS: ATTENDING PHYSICIAN Nurse Practitioner Family | DX: Z12.31 Encounter for screening mammogram for malignant neoplasm of breast (principal) | CPT/HCPCS: 77063; 77067 ==